=== PATIENT | male | born 1970 | race Caucasian/White ===

== ENCOUNTER 2016-07-17 06:51 | Day surgery (SDC) | payer MEDICAID ==
[2016-07-17] MEDS ORDERED: Sodium Chloride 0.9% 1,000 ML IV SCH (07:00)
[2016-07-17] MEDS ORDERED: Propofol 200 MG/20 ML SDV ONE (07:35)
[2016-07-17] MEDS ORDERED: Midazolam 1 MG/ML 2 ML SDV ONE (07:35)
[2016-07-17] MEDS ORDERED: fentaNYL 100 MCG/2 ML SDV ONE (07:35)
[2016-07-17 08:45] VITALS: BP 135/89
--- NOTE | 2016-07-21 09:11 | OR ---
DATE OF PROCEDURE: 07/17/2016 PROCEDURE: Esophagogastroduodenoscopy. FINDINGS: 1. Duodenitis, mild, no active bleeding, no evidence of ulceration. 2. Gastritis, mild, no evidence of active ulceration. 3. Inflammation at the GE junction consistent with reflux disease. COMPLICATIONS: None. 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 PREOPERATIVE DIAGNOSIS: Gastritis/duodenitis. POSTOPERATIVE DIAGNOSIS: Gastritis/duodenitis. INDICATIONS: This is a pleasant 46-year-old male with abdominal pain. It is epigastric in nature. RISKS: Risks, benefits, alternatives, and limitations, including, but not limited to infection, bleeding, and perforation were explained to the patient. They wished to proceed. PROCEDURE IN DETAIL: The patient was placed in left lateral decubitus position. The EGD scope was introduced and advanced atraumatically to the second part of the duodenum. Within the duodenum proper, the patient was known to have inflammation consistent with duodenitis. This was biopsied using cold biopsy forceps. In the bulb, there was no evidence of ulceration. The scope was brought back to the stomach and retroflexed. No hiatal hernia. In the antrum, there was mild petechiae consistent with gastritis. However, this was not associated with an ulcer nor was actively bleeding. The cardia, body, and the remainder of the stomach was inspected without abnormality. In the GE junction, the patient had inflammation around the Z-line consistent with gastroesophageal reflux disease. Therefore, the patient was biopsy in at least 4 quadrants using cold biopsy forceps. The air was removed from the stomach. The remainder of the esophagus was inspected without abnormality. The patient tolerated the procedure well. Stevan Ibarra MD /[id number]
== END 2016-07-17 08:53 | disposition home or self-care (01) ==
LOC: JP.SDS 06:51
PROVIDERS: ATTEND Surgery
PROC: 0DB48ZX Excision of Esophagogastric Junction, Via Natural or Artificial Opening Endoscopic, Diagnostic (ICD-10-PCS; principal; 2016-07-17)
PROC: 0DB88ZX Excision of Small Intestine, Via Natural or Artificial Opening Endoscopic, Diagnostic (ICD-10-PCS; 2016-07-17)
PROC: 0DB68ZX Excision of Stomach, Via Natural or Artificial Opening Endoscopic, Diagnostic (ICD-10-PCS; 2016-07-17)
DX: K29.90 Gastroduodenitis, unspecified, without bleeding (principal); K21.9 Gastro-esophageal reflux disease without esophagitis
CPT/HCPCS: 43239; J2250; J2704; J3010; J7040; 88305

== ENCOUNTER 2017-05-29 00:20 | Emergency (ER) | payer MEDICAID ==
[2017-05-29 00:33] VITALS: BP 138/75
--- NOTE | 2017-05-29 01:18 | EDM.PDOC ---
ED HPI GENERAL MEDICAL PROBLEM - General Chief Complaint: Abdominal Pain Stated Complaint: STOMACH PAIN Time Seen by Provider: 05/29/17 00:50 Source of Information: Reports: Patient, Old Records, RN Notes Reviewed History Limitations: Reports: No Limitations - History of Present Illness INITIAL COMMENTS - FREE TEXT/NARRATIVE: Brought in and accompanied by his Chief complaint Upper abdominal pain History of present illness 47-year-old male who's had recurrent abdominal pain for about 6 years. It's gotten more frequent in the last 2 years particularly in the last couple months , he had an episode of pain 6 days ago then 2 days ago and then this evening. This evening's episode started within a half hour after eating a burger meal from a fast food place. Onset about 6:30 PM However in the past his other episodes aren't always related to food. A Number of years ago he did have an ultrasound which showed the presence of gallstones, he was told that he might need to have surgery eventually. This pain feels different than his gallstone pain but the episodes that he's had recently have been similar. Upper abdomen radiation upwards, but no radiation to the back. Very sharp, feels better if he hunches over or bends over. Associated with some nausea but never any vomiting or fever. Often will go away within a few hours. Abad took ibuprofen but really wasn't improving However since he is arrived seems to have improved a bit. No urinary symptoms. No history of jaundice. Strong family history of gallstones mother and father 1 parent did have surgery. He's only past surgical history has been for appendix. 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 Abdominal Pain Score (Numeric/FACES): 5 - Related Data Allergies Allergy/AdvReac Type Severity Reaction Status Date / Time No Known Allergies Allergy Verified 07/17/16 07:06 Home Meds: Home Meds Hydrocodone/Acetaminophen [Hydrocodon-Acetaminophen 5-325] 1 - 2 each PO QID PRN #10 tablet 05/29/17 [Rx] Past Medical History HEENT History: Reports: Impaired Vision Gastrointestinal History: Reports: Other (See Below) Other Gastrointestinal History: history of probable ulcer; has umbilical hernia Musculoskeletal History: Reports: Other (See Below) Other Musculoskeletal History: history fractured ribs years ago Neurological History: Reports: Concussion Dermatologic History: Reports: None - Infectious Disease History Infectious Disease History: Reports: Chicken Pox - Past Surgical History GI Surgical History: Reports: Appendectomy, EGD Neurological Surgical History: Reports: None Musculoskeletal Surgical History: Reports: None, Arthroscopic Knee, Other (See Below) Dermatological Surgical History: Reports: Skin Biopsy Social & Family History - Family History Family Medical History: Noncontributory - Tobacco Use Smoking Status *Q: Former Smoker Used Tobacco, but Quit: Yes Month Tobacco Last Used: 20 years ago Second Hand Smoke Exposure: Yes - Caffeine Use Caffeine Use: Reports: None - Alcohol Use Days Per Week of Alcohol Use: 1 Number of Drinks Per Day: 6 Total Drinks Per Week: 6 - Recreational Drug Use Recreational Drug Use: No ED ROS GENERAL - Review of Systems Review Of Systems: Unable To Obtain Constitutional: Reports: Diaphoresis (And crying with the pain episode at home) , Decreased Appetite. Denies: Fever, Chills HEENT: Reports: No Symptoms Respiratory: Reports: No Symptoms Cardiovascular: Reports: No Symptoms Endocrine: Reports: No Symptoms GI/Abdominal: Reports: Abdominal Pain, Nausea. Denies: Bloody Stool, Diarrhea, Vomiting : Reports: No Symptoms Musculoskeletal: Reports: No Symptoms Skin: Reports: No Symptoms Neurological: Reports: No Symptoms Psychiatric: Reports: No Symptoms Hematologic/Lymphatic: Reports: No Symptoms ED EXAM, GI/ABD - Physical Exam Exam: See Below Exam Limited By: No Limitations General Appearance: Alert, Mild Distress, Other (Initially hunched over in the room fairly uncomfortable but at the time I examine his pain was less, vital signs are normal, no difficulty speaking) Eyes: Bilateral: Normal Appearance, EOMI Ears: Normal External Exam Nose: Normal Inspection Throat/Mouth: Normal Inspection, Normal Oropharynx Head: Atraumatic Neck: Normal Inspection Respiratory/Chest: No Respiratory Distress, Lungs Clear, No Accessory Muscle Use Cardiovascular: Normal Peripheral Pulses, Regular Rate, Rhythm GI/Abdominal Exam: Normal Bowel Sounds, Soft, No Distention, Tender (Epigastric and right upper quadrant). No: Rigid, Rebound, Mass (Male) Exam: No Hernia Back Exam: Normal Inspection Extremities: Normal Inspection Neurological: Alert, Oriented, No Motor/Sensory Deficits Psychiatric: Anxious Skin Exam: Warm, Dry, Intact, Normal Color, No Rash Lymphatic: No Adenopathy Course - Vital Signs Last Recorded V/S: Last Vital Signs Temp 35.6 C 05/29/17 00:32 Pulse 76 05/29/17 00:32 Resp 18 05/29/17 00:32 BP 138/75 05/29/17 00:32 Pulse Ox 99 05/29/17 00:32 - Orders/Labs/Meds Labs: Laboratory Tests 05/29/17 05/29/17 05/29/17 Range/Units 01:12 01:20 01:20 WBC 9.7 (4.5-11.0) K/uL RBC 4.71 (4.30-5.90) M/uL Hgb 13.8 (12.0-15.0) g/dL Hct 40.3 (40.0-54.0) % MCV 86 (80-98) fL MCH 29 (27-31) pg MCHC 34 (32-36) % Plt Count 248 (150-400) K/uL Sodium 136 L (140-148) mmol/L Potassium 3.5 L (3.6-5.2) mmol/L Chloride 102 (100-108) mmol/L Carbon Dioxide 24 (21-32) mmol/L Anion Gap 13.5 (5.0-14.0) mmol/L BUN 17 (7-18) mg/dL Creatinine 1.0 (0.8-1.3) mg/dL Est Cr Clr Drug Dosing 87.19 mL/min Estimated GFR (MDRD) > 60 (>60) Glucose 123 H (74-106) mg/dL Calcium 8.9 (8.5-10.1) mg/dL Total Bilirubin 0.5 (0.2-1.0) mg/dL AST 14 L (15-37) U/L ALT 23 (12-78) U/L Alkaline Phosphatase 44 L (46-116) U/L Total Protein 6.6 (6.4-8.2) g/dL Albumin 4.1 (3.4-5.0) g/dL Globulin 2.5 (2.3-3.5) g/dL Albumin/Globulin Ratio 1.6 (1.2-2.2) Lipase 133 (73-393) U/L Urine Color Yellow Urine Appearance Cloudy Urine pH 8.0 (4.5-8.0) Ur Specific [place] 1.020 (1.008-1.030) Urine Protein Negative (NEGATIVE) mg/dL Urine Glucose (UA) Normal (NEGATIVE) mg/dL Urine Ketones 50 H (NEGATIVE) mg/dL Urine Occult Blood Negative (NEGATIVE) Urine Nitrite Negative (NEGAITVE) Urine Bilirubin Negative (NEGATIVE) Urine Urobilinogen Normal (NORMAL) mg/dL Ur Leukocyte Esterase Negative (NEGATIVE) Urine RBC 0-5 (0-5) Urine WBC 0-5 (0-5) Ur Epithelial Cells Rare Amorphous Sediment Many Urine Bacteria Many Urine Mucus Not seen - Re-Assessments/Exams Free Text/Narrative Re-Assessment/Exam: 05/29/17 01:19 47-year-old male with recurrent upper abdominal pain, sometimes associated with meals. Tender in the epigastric area on exam Previous positive ultrasound by history This suggests recurrence of biliary colic. Declines analgesics currently Labs 05/29/17 01:56 Pain much improved CBC normal Hepatic profile and lipase normal BUN/creatinine normal mild elevation of glucose Recommend ultrasound as outpatient OTC analgesics or prescription pain medication as needed for pain if it recurs Return to emergency if worsening Departure - Departure Time of Disposition: 01:57 Disposition: Home, Self-Care 01 Condition: Good Clinical Impression: Epigastric abdominal pain - Discharge Information Prescriptions: Hydrocodone/Acetaminophen [Hydrocodon-Acetaminophen 5-325] 1 - 2 each PO QID PRN #10 tablet PRN Reason: Moderate to severe pain Instructions: Abdominal Pain, Adult, [id number], Cholelithiasis Referrals: PCP,None [Primary Care Provider] - Forms: ED Department Discharge Additional Instructions: Because of the recurrent nature of the pain, the normal blood tests, and a positive ultrasound several years ago, the most likely cause of your pain is biliary colic caused by gallstones getting stuck temporarily in the gallbladder tube. Avoid larger greasy meals Ultrasound will be arranged for you and you'll get a call for an appointment Make an appointment with your physician/provider or with general surgery after the ultrasound is done to discuss further treatment. Return to emergency if you have severe pain that she cannot manage at home, repeated vomiting, or special if you develop fever or turn yellow/become jaundiced
== END 2017-05-29 02:07 | disposition home or self-care (01) ==
LOC: JP.ED 00:20
DX: R10.13 Epigastric pain (principal); Z87.891 Personal history of nicotine dependence
CPT/HCPCS: 36415; 80053; 81001; 83690; 85027; 99284

== ENCOUNTER 2017-06-06 10:23 | Emergency (ER) | payer MEDICAID ==
[2017-06-06] MEDS ORDERED: Morphine 10 MG/ML Syringe IVPUSH ONE ×2 (11:15→12:22)
[2017-06-06] MEDS ORDERED: Lactated Ringers 1,000 ML IV ONE (11:16)
--- NOTE | 2017-06-06 11:21 | EDM.PDOC ---
ED HPI GENERAL MEDICAL PROBLEM - General Chief Complaint: Abdominal Pain Stated Complaint: STOMACH ISSUES Time Seen by Provider: 06/06/17 10:58 Source of Information: Reports: Patient, Family, Old Records, RN Notes Reviewed History Limitations: Reports: No Limitations - History of Present Illness INITIAL COMMENTS - FREE TEXT/NARRATIVE: 47-year-old gentleman presents emergency department today complaint of right upper quadrant pain, he was in the emergency department on the of this last month for evaluation of right upper quadrant pain underwent ultrasound which shows a gallbladder contracted poorly visualized no stones or appreciated and mild prominence of the common bile duct, he was evaluated by surgery in clinic to set up for a HIDA scan which was done today which demonstrates no acute cholecystitis however delayed gallbladder uptake with low ejection fraction approximate 60 minutes in 20% respectively. After his HIDA scan at approximately 9 AM this morning at 1 bite of a sandwich which then caused excruciating pain in his right upper quadrant, denies any shortness of breath chest pain he is experiencing nausea with the waves of pain Right Upper Abdominal Pain Score (Numeric/FACES): 9 - Related Data Allergies Allergy/AdvReac Type Severity Reaction Status Date / Time No Known Allergies Allergy Verified 06/06/17 10:47 Home Meds: Home Meds Hydrocodone/Acetaminophen [Hydrocodon-Acetaminophen 5-325] 1 - 2 each PO QID PRN #10 tablet 05/29/17 [Rx] Omeprazole 20 mg PO DAILY 06/06/17 [History] Past Medical History HEENT History: Reports: Impaired Vision Gastrointestinal History: Reports: Other (See Below) Other Gastrointestinal History: history of probable ulcer; has umbilical hernia recent abdomenal pain Musculoskeletal History: Reports: Other (See Below) Other Musculoskeletal History: history fractured ribs years ago Neurological History: Reports: Concussion Dermatologic History: Reports: None - Infectious Disease History Infectious Disease History: Reports: Chicken Pox - Past Surgical History GI Surgical History: Reports: Appendectomy, EGD Neurological Surgical History: Reports: None Musculoskeletal Surgical History: Reports: None, Arthroscopic Knee, Other (See Below) Dermatological Surgical History: Reports: Skin Biopsy Social & Family History - Family History Family Medical History: Noncontributory - Tobacco Use Smoking Status *Q: Former Smoker Used Tobacco, but Quit: Yes Month Tobacco Last Used: 20 years ago Second Hand Smoke Exposure: Yes - Caffeine Use Caffeine Use: Reports: None - Alcohol Use Days Per Week of Alcohol Use: 1 Number of Drinks Per Day: 6 Total Drinks Per Week: 6 - Recreational Drug Use Recreational Drug Use: No ED ROS GENERAL - Review of Systems Review Of Systems: See Below Constitutional: Reports: No Symptoms HEENT: Reports: No Symptoms Respiratory: Reports: No Symptoms Cardiovascular: Reports: No Symptoms GI/Abdominal: Reports: Abdominal Pain, Flatus, Nausea. Denies: Vomiting : Reports: No Symptoms Musculoskeletal: Reports: No Symptoms Skin: Reports: No Symptoms Neurological: Reports: No Symptoms ED EXAM, GI/ABD - Physical Exam Exam: See Below Exam Limited By: No Limitations General Appearance: Alert, Moderate Distress Respiratory/Chest: No Respiratory Distress, Lungs Clear Cardiovascular: Regular Rate, Rhythm, No Murmur GI/Abdominal Exam: Soft, Tender Course - Vital Signs Last Recorded V/S: Last Vital Signs Temp 98.8 F 06/06/17 10:54 Pulse 69 06/06/17 10:54 Resp 20 06/06/17 10:54 BP 136/88 06/06/17 10:54 Pulse Ox 100 06/06/17 10:54 - Orders/Labs/Meds Orders: Active Orders 24 hr Category Date Time Status COMPREHENSIVE METABOLIC PN,CMP [CHEM] Stat Lab 06/06/17 11:24 Received Lactated Ringers [Ringers, Lactated] 1,000 ml Med 06/06/17 11:16 Active IV BOLUS Medication Orders Lactated Ringer's (Ringers, Lactated) 1,000 mls @ 250 mls/hr IV BOLUS ONE Stop: 06/06/17 15:15 Last Admin: 06/06/17 11:30 Dose: 250 mls/hr Labs: Laboratory Tests 06/06/17 Range/Units 11:24 WBC 7.2 (4.5-11.0) K/uL RBC 4.87 (4.30-5.90) M/uL Hgb 14.3 (12.0-15.0) g/dL Hct 41.7 (40.0-54.0) % MCV 86 (80-98) fL MCH 29 (27-31) pg MCHC 34 (32-36) % Plt Count 255 (150-400) K/uL Neut % (Auto) 60 (36-66) % Lymph % (Auto) 29 (24-44) % [place] % (Auto) 9 H (2-6) % Eos % (Auto) 1 L (2-4) % Baso % (Auto) 0 (0-1) % Meds: Medications Generic Name Dose Route Start Last Admin Trade Name Freq PRN Reason Stop Dose Admin Lactated Ringer's 1,000 mls @ 250 mls/hr 06/06/17 11:16 06/06/17 11:30 Ringers, Lactated IV 06/06/17 15:15 250 mls/hr BOLUS ONE Administration Discontinued Medications Generic Name Dose Route Start Last Admin Trade Name Freq PRN Reason Stop Dose Admin Morphine Sulfate 5 mg 06/06/17 11:15 06/06/17 11:32 Morphine IVPUSH 06/06/17 11:16 5 mg ONETIME ONE Administration Departure - Departure Time of Disposition: 11:43 Disposition: Admitted As Inpatient 66 Condition: Good Clinical Impression: Dysfunctional gallbladder - Discharge Information Referrals: Stevan Ibarra MD [Primary Care Provider] - Forms: ED Department Discharge - My Orders Last 24 Hours: My Active Orders 06/06/17 11:16 Lactated Ringers [Ringers, Lactated] 1,000 ml IV BOLUS 06/06/17 11:24 COMPREHENSIVE METABOLIC PN,CMP [CHEM] Stat - Assessment/Plan Last 24 Hours: My Active Orders 06/06/17 11:16 Lactated Ringers [Ringers, Lactated] 1,000 ml IV BOLUS 06/06/17 11:24 COMPREHENSIVE METABOLIC PN,CMP [CHEM] Stat Plan: Assessment Acuity = acute Site and laterality = right upper quadrant pain postprandial Etiology = probable gallbladder dysfunction Manifestations = nausea Location of injury = Home Lab values = CBC, CMP pending Plan Discussed case with Dr. Pugh kindly agreed to evaluate the patient emergency department for surgical intervention This note was dictated using [employer] voice recognition software please call with any questions on syntax or yaquelin.
[2017-06-06] MEDS ORDERED: Morphine 2 MG/ML Syringe IVPUSH PRN (11:44)
[2017-06-06] MEDS ORDERED: Propofol 200 MG/20 ML SDV ONE (11:59)
[2017-06-06] MEDS ORDERED: Rocuronium 50 MG/5 ML Vial ONE (11:59)
[2017-06-06] MEDS ORDERED: Succinylcholine/Normal Saline 200 MG/10 ML Syringe ONE (11:59)
[2017-06-06] MEDS ORDERED: Ondansetron 4 MG/2 ML SDV ONE (11:59)
[2017-06-06] MEDS ORDERED: Neostigmine Methylsulfate 1 MG/ML 5 ML Syringe ONE (11:59)
[2017-06-06] MEDS ORDERED: Dexamethasone 4 MG/ML SDV ONE (11:59)
[2017-06-06] MEDS ORDERED: fentaNYL 250 MCG/5 ML SDV ONE (11:59)
[2017-06-06] MEDS ORDERED: Lidocaine 1% with EPINEPHrine 1:100,000 50 ML MDV ONE (12:07)
[2017-06-06] MEDS ORDERED: Bupivacaine 0.5% 50 ML MDV ONE (12:07)
[2017-06-06 12:17] VITALS: BP 128/86
[2017-06-06] MEDS ORDERED: Piperacillin/Tazobactam 4.5 GM in Sodium Chloride 0.9% 100 ML IV SCH (12:30)
--- NOTE | 2017-06-06 12:31 | PCM.CONS ---
H&P History of Present Illness - General Date of Service: 06/06/17 Admit Problem/Dx: Admission Diagnosis/Problem Admission Diagnosis/Problem Dysfunctional gallbladder Source of Information: Patient, Provider, Significant Other History Limitations: Reports: No Limitations - History of Present Illness Initial Comments - Free Text/Narative: This 47 year old white male has complained of intermittent episodes of right upper quadrant and epigastric pain for over a year. He was told it was reflux. He presented tot the ER about a week ago with pain and was found to have normal LFT's and lipase. An abdominal ultrasound was unremarkable (shrunken gall bladder) but his common duct was slightly dilated. He saw Dr. Menendez in clinic who ordered CCK stimulated HIDA which was done today. This showed delayed gall bladder visualization and with injection of CCK he had a low ejection fraction consistent with biliary dyskinesia. However, there was no contrast into the small bowel. He went home, ate one bite of a sandwich and experienced severe abdominal pain causing him to return to the ER. He is quite uncomfortable and appeared jaundiced. His LFT's are now abnormal with a bilirubin of 4.7 and and alkaline phosphatase of 200. He will be referred to [facility] for ERCP. I explaind this to him. Onset of Symptoms: Reports: Today (He has had problems however for over a year. ) Symptom Onset Time: 09:00 Duration of Symptoms: Reports: Hour(s): Location: Reports: Abdomen Severity: Severe Improves with: Reports: None Worsens with: Reports: None Associated Symptoms: Reports: No Other Symptoms Right Upper Abdominal Pain Score (Numeric/FACES): 2 - Related Data Allergies/Adverse Reactions: Allergies Allergy/AdvReac Type Severity Reaction Status Date / Time No Known Allergies Allergy Verified 06/06/17 10:47 Home Medications: Home Meds Hydrocodone/Acetaminophen [Hydrocodon-Acetaminophen 5-325] 1 - 2 each PO QID PRN #10 tablet 05/29/17 [Rx] Omeprazole 20 mg PO DAILY 06/06/17 [History] Past Medical History HEENT History: Reports: Impaired Vision Gastrointestinal History: Reports: Other (See Below) Other Gastrointestinal History: history of probable ulcer; has umbilical hernia recent abdomenal pain Musculoskeletal History: Reports: Other (See Below) Other Musculoskeletal History: history fractured ribs years ago Neurological History: Reports: Concussion Dermatologic History: Reports: None - Infectious Disease History Infectious Disease History: Reports: Chicken Pox - Past Surgical History GI Surgical History: Reports: Appendectomy, EGD Neurological Surgical History: Reports: None Musculoskeletal Surgical History: Reports: None, Arthroscopic Knee, Other (See Below) Dermatological Surgical History: Reports: Skin Biopsy Social & Family History - Family History Family Medical History: Noncontributory - Tobacco Use Smoking Status *Q: Former Smoker Used Tobacco, but Quit: Yes Month Tobacco Last Used: 20 years ago Second Hand Smoke Exposure: Yes - Caffeine Use Caffeine Use: Reports: None - Alcohol Use Days Per Week of Alcohol Use: 1 Number of Drinks Per Day: 6 Total Drinks Per Week: 6 - Recreational Drug Use Recreational Drug Use: No H&P Review of Systems - Review of Systems: Review Of Systems: See Below General: Reports: No Symptoms HEENT: Reports: No Symptoms Pulmonary: Reports: No Symptoms Cardiovascular: Reports: No Symptoms Gastrointestinal: Reports: Abdominal Pain, Other (History of appendectomy at age 12. ) Genitourinary: Reports: No Symptoms Musculoskeletal: Reports: No Symptoms Skin: Reports: No Symptoms Psychiatric: Reports: No Symptoms Neurological: Reports: No Symptoms Hematologic/Lymphatic: Reports: No Symptoms Immunologic: Reports: No Symptoms Exam - Exam Exam: See Below - Vital Signs Vital Signs: Last Vital Signs Temp 98.8 F 06/06/17 12:16 Pulse 65 06/06/17 12:16 Resp 16 06/06/17 12:16 BP 128/86 06/06/17 12:16 Pulse Ox 98 06/06/17 12:16 Weight: 123 lb 7.342 oz - Exam Lungs: Clear to Auscultation, Normal Respiratory Effort Cardiovascular: Regular Rate, Regular Rhythm GI/Abdominal Exam: Rigid, Tender Extremities: Normal Inspection Neuro Extensive - Mental Status: Alert, Oriented x3, Normal Mood/Affect (Very uncomfortable. ), Normal Cognition Psychiatric: Alert, Normal Affect, Normal Mood (Very uncomfortable. ) - Patient Data Lab Results Last 24 hrs: Laboratory Results - last 24 hr 06/06/17 06/06/17 Range/Units 11:24 11:24 WBC 7.2 (4.5-11.0) K/uL RBC 4.87 (4.30-5.90) M/uL Hgb 14.3 (12.0-15.0) g/dL Hct 41.7 (40.0-54.0) % MCV 86 (80-98) fL MCH 29 (27-31) pg MCHC 34 (32-36) % Plt Count 255 (150-400) K/uL Neut % (Auto) 60 (36-66) % Lymph % (Auto) 29 (24-44) % [place] % (Auto) 9 H (2-6) % Eos % (Auto) 1 L (2-4) % Baso % (Auto) 0 (0-1) % Sodium 142 (140-148) mmol/L Potassium 3.5 L (3.6-5.2) mmol/L Chloride 104 (100-108) mmol/L Carbon Dioxide 26 (21-32) mmol/L Anion Gap 15.5 H (5.0-14.0) mmol/L BUN 17 (7-18) mg/dL Creatinine 1.2 (0.8-1.3) mg/dL Est Cr Clr Drug Dosing 60.28 mL/min Estimated GFR (MDRD) > 60 (>60) Glucose 140 H (74-106) mg/dL Calcium 9.6 (8.5-10.1) mg/dL Total Bilirubin 4.7 H D (0.2-1.0) mg/dL AST 125 H D (15-37) U/L ALT 432 H (12-78) U/L Alkaline Phosphatase 200 H D (46-116) U/L Total Protein 7.5 (6.4-8.2) g/dL Albumin 4.1 (3.4-5.0) g/dL Globulin 3.4 (2.3-3.5) g/dL Albumin/Globulin Ratio 1.2 (1.2-2.2) Result Diagrams: 06/06/17 11:24 06/06/17 11:24 Consult PN Assessment/Plan Procedures: Procedures ASSAY OF LIPASE (05/29/17) COMPLETE CBC AUTOMATED (05/29/17) COMPREHEN METABOLIC PANEL (05/29/17) ECHO EXAM OF ABDOMEN (05/31/17) EGD BIOPSY SINGLE/MULTIPLE (07/17/16) EMERGENCY DEPT VISIT (05/29/17) ROUTINE VENIPUNCTURE (05/29/17) URINALYSIS AUTO W/SCOPE (05/29/17) (1) Serum total bilirubin elevated SNOMED Code(s): 32074439 Code(s): R17 - UNSPECIFIED JAUNDICE Current Visit: Yes Problem List Initiated/Reviewed/Updated: Yes Plan: Refer to [facility] for ERCP.
[2017-06-06] MEDS ORDERED: Piperacillin/Tazobactam/Dext 4.5 GM in Premix Bag 1 BAG IV SCH (12:45)
== END 2017-06-06 13:25 | disposition other institution (70) ==
LOC: JP.ED 10:23 → JP.SDS 12:00 → JP.ED 13:25
DX: K82.8 Other specified diseases of gallbladder (principal); Z79.899 Other long term (current) drug therapy; Z87.891 Personal history of nicotine dependence
CPT/HCPCS: 36415; 80053; 85025; 87040; 99285; J1100; J2270; J2405; J2543; J2704; J3010; J7120

== ENCOUNTER 2017-10-12 18:48 | Emergency (ER) | payer MEDICAID ==
[2017-10-12] MEDS ORDERED: HYDROmorphone 0.5 MG/0.5 ML Syringe IVPUSH ONE ×2 (19:08→19:55)
[2017-10-12] MEDS ORDERED: Ondansetron 4 MG/2 ML SDV IVPUSH ONE ×2 (19:09→21:38)
--- NOTE | 2017-10-12 19:11 | EDM.PDOC ---
ED HPI GENERAL MEDICAL PROBLEM - General Chief Complaint: Upper Extremity Injury/Pain Stated Complaint: FOUR HAYDEN ACCIDENT Time Seen by Provider: 10/12/17 19:09 Source of Information: Reports: Patient History Limitations: Reports: No Limitations - History of Present Illness INITIAL COMMENTS - FREE TEXT/NARRATIVE: pt arrived with pain in the left shoulder. He hit a tree with his 4 hayden and he thinks he dislocated the shoulder. Onset: Today, Sudden Duration: Hour(s): Location: Reports: Upper Extremity, Left Associated Symptoms: Reports: No Other Symptoms Left Shoulder Pain Score (Numeric/FACES): 10 - Related Data Allergies Allergy/AdvReac Type Severity Reaction Status Date / Time No Known Allergies Allergy Verified 10/12/17 19:03 Home Meds: Home Meds NK [No Known Home Meds] 10/12/17 [History] Past Medical History HEENT History: Reports: Impaired Vision Gastrointestinal History: Reports: Other (See Below) Other Gastrointestinal History: history of probable ulcer; has umbilical hernia recent abdomenal pain Musculoskeletal History: Reports: Other (See Below) Other Musculoskeletal History: history fractured ribs years ago Neurological History: Reports: Concussion Dermatologic History: Reports: None - Infectious Disease History Infectious Disease History: Reports: Chicken Pox - Past Surgical History GI Surgical History: Reports: Appendectomy, EGD Neurological Surgical History: Reports: None Musculoskeletal Surgical History: Reports: None, Arthroscopic Knee, Other (See Below) Dermatological Surgical History: Reports: Skin Biopsy Social & Family History - Family History Family Medical History: Noncontributory - Caffeine Use Caffeine Use: Reports: None Review of Systems - Review of Systems Review Of Systems: See Below Constitutional: Reports: No Symptoms Eyes: Reports: No Symptoms Ears: Reports: No Symptoms Nose: Reports: No Symptoms Mouth/Throat: Reports: No Symptoms Respiratory: Reports: No Symptoms Cardiovascular: Reports: No Symptoms GI/Abdominal: Reports: No Symptoms Musculoskeletal: Reports: Other (pain in the left shoulder. ) Skin: Reports: No Symptoms ED EXAM, GENERAL - Physical Exam Exam: See Below Free Text/Narrative:: pt arrived with pain in the left shoulder which he thought he dislocated. He is not sob. He is haviing alot of pain with movement of his left arm and deep breathing. Exam Limited By: No Limitations General Appearance: Alert, Anxious, Moderate Distress Ears: Normal TMs Nose: Normal Inspection Throat/Mouth: Normal Inspection Head: Atraumatic Neck: Normal Inspection Respiratory/Chest: No Respiratory Distress, Other ( good bereath sounds bilaterlly. ) Cardiovascular: Regular Rate, Rhythm, Other (no murmurs seen. ) GI/Abdominal: Soft, Non-Tender (Male) Exam: Deferred Rectal (Males) Exam: Deferred Back Exam: Normal Inspection Extremities: Other ( left shoulder is deformed. Is is very uncomfortable when it is moved. ) Neurological: Alert, Oriented, Normal Cognition Psychiatric: Normal Affect Course - Vital Signs Last Recorded V/S: Last Vital Signs Temp 36.4 C 10/12/17 21:11 Pulse 63 10/12/17 21:11 Resp 16 10/12/17 21:11 BP 167/95 H 10/12/17 21:11 Pulse Ox 99 10/12/17 21:11 - Orders/Labs/Meds Orders: Active Orders 24 hr Category Date Time Status Chest w Cont [CT] Stat Exams 10/12/17 19:53 Taken Knee Min 4V Rt [CR] Stat Exams 10/12/17 19:31 Taken Shoulder Comp Lt [CR] Stat Exams 10/12/17 19:07 Taken Iopamidol [Isovue-300 (61%)] Med 10/12/17 20:00 Active 100 ml IV . DIRECTED Sodium Chloride 0.9% [Normal Saline] 80 ml Med 10/12/17 20:00 Active IV ASDIRECTED Sodium Chloride 0.9% [Saline Flush] Med 10/12/17 19:59 Active 10 ml FLUSH ASDIRECTED PRN Medication Orders Sodium Chloride (Normal Saline) 80 mls @ 3 mls/sec IV ASDIRECTED YADIEL Last Admin: 10/12/17 20:16 Dose: 3 mls/sec Iopamidol (Isovue-300 (61%)) 100 ml IV . DIRECTED YADIEL Last Admin: 10/12/17 20:16 Dose: 100 ml Sodium Chloride (Saline Flush) 10 ml FLUSH ASDIRECTED PRN PRN Reason: Keep Vein Open Last Admin: 10/12/17 20:16 Dose: 10 ml Admin: 10/12/17 20:03 Dose: 10 ml Labs: Laboratory Tests 10/12/17 10/12/17 Range/Units 19:57 19:57 WBC 20.0 H (4.5-11.0) K/uL RBC 4.58 (4.30-5.90) M/uL Hgb 13.5 (12.0-15.0) g/dL Hct 39.6 L (40.0-54.0) % MCV 87 (80-98) fL MCH 30 (27-31) pg MCHC 34 (32-36) % Plt Count 235 (150-400) K/uL Neut % (Auto) 84 H (36-66) % Lymph % (Auto) 9 L (24-44) % Sibley % (Auto) 7 H (2-6) % Eos % (Auto) 0 L (2-4) % Baso % (Auto) 0 (0-1) % Sodium 136 L (140-148) mmol/L Potassium 3.4 L (3.6-5.2) mmol/L Chloride 102 (100-108) mmol/L Carbon Dioxide 20 L (21-32) mmol/L Anion Gap 17.4 H (5.0-14.0) mmol/L BUN 11 (7-18) mg/dL Creatinine 0.7 L (0.8-1.3) mg/dL Est Cr Clr Drug Dosing 121.36 mL/min Estimated GFR (MDRD) > 60 (>60) Glucose 114 H (74-106) mg/dL Calcium 8.3 L (8.5-10.1) mg/dL Meds: Medications Generic Name Dose Route Start Last Admin Trade Name Freq PRN Reason Stop Dose Admin Sodium Chloride 80 mls @ 3 mls/sec 10/12/17 20:00 10/12/17 20:16 Normal Saline IV 3 mls/sec ASDIRECTED YADIEL Administration Iopamidol 100 ml 10/12/17 20:00 10/12/17 20:16 Isovue-300 (61%) IV 100 ml . DIRECTED YADIEL Administration Sodium Chloride 10 ml 10/12/17 19:59 10/12/17 20:16 Saline Flush FLUSH 10 ml ASDIRECTED PRN Administration Keep Vein Open Discontinued Medications Generic Name Dose Route Start Last Admin Trade Name Freq PRN Reason Stop Dose Admin Hydromorphone HCl 0.5 mg 10/12/17 19:08 10/12/17 19:18 Dilaudid IVPUSH 10/12/17 19:09 0.5 mg ONETIME ONE Administration Hydromorphone HCl 0.5 mg 10/12/17 19:55 10/12/17 20:01 Dilaudid IVPUSH 10/12/17 19:56 0.5 mg ONETIME ONE Administration Ondansetron HCl 4 mg 10/12/17 19:09 10/12/17 19:16 Zofran IVPUSH 10/12/17 19:10 4 mg ONETIME ONE Administration - Re-Assessments/Exams Free Text/Narrative Re-Assessment/Exam: 10/12/17 21:31 xray of the shoulder showed a communited fracture of the left scapula. A cat scan of the chest showed a fracture of the scapula with displacement. He has a fracture of the manibrium with some blood in the mediastium. He has a fracture of the left 2nd and 3rd ribs. He has a fractured transverse process of the 3rd thoracic vertebrae. Departure - Departure Time of Disposition: 21:34 Disposition: DC/Tfer to [facility] 02 Condition: Fair Clinical Impression: Fracture of left scapula, Fracture of two ribs of left side, Fracture of manubrium, Fracture of transverse process of thoracic vertebra - Discharge Information Referrals: PCP,None [Primary Care Provider] - Forms: ED Department Discharge Care Plan Goals: tranfer to [facility]. - My Orders Last 24 Hours: My Active Orders 10/12/17 19:07 Shoulder Comp Lt [CR] Stat 10/12/17 19:31 Knee Min 4V Rt [CR] Stat 10/12/17 19:53 Chest w Cont [CT] Stat 10/12/17 19:59 Sodium Chloride 0.9% [Saline Flush] 10 ml FLUSH ASDIRECTED PRN 10/12/17 20:00 Iopamidol [Isovue-300 (61%)] 100 ml IV . DIRECTED Sodium Chloride 0.9% [Normal Saline] 80 ml IV ASDIRECTED - Assessment/Plan Last 24 Hours: My Active Orders 10/12/17 19:07 Shoulder Comp Lt [CR] Stat 10/12/17 19:31 Knee Min 4V Rt [CR] Stat 10/12/17 19:53 Chest w Cont [CT] Stat 10/12/17 19:59 Sodium Chloride 0.9% [Saline Flush] 10 ml FLUSH ASDIRECTED PRN 10/12/17 20:00 Iopamidol [Isovue-300 (61%)] 100 ml IV . DIRECTED Sodium Chloride 0.9% [Normal Saline] 80 ml IV ASDIRECTED
[2017-10-12] MEDS ORDERED: Iopamidol 612 MG/ML 100 ML Bottle IV SCH (20:00)
[2017-10-12] MEDS ORDERED: Sodium Chloride 0.9% 80 ML IV SCH (20:00)
[2017-10-12] MEDS: Sodium Chloride 0.9% 10 ML Syringe FLUSH PRN ×3 (20:03→21:48)
[2017-10-12 21:12] VITALS: BP 167/95
[2017-10-12] MEDS ORDERED: HYDROmorphone 1 MG/ML Syringe IVPUSH ONE (21:37)
[2017-10-12] MEDS ORDERED: Sodium Chloride 0.9% 1,000 ML IV SCH (21:45)
--- NOTE | 2017-10-15 08:29 | CR ---
Shoulder Comp Lt CLINICAL HISTORY: Pain, trauma FINDINGS: There is a comminuted displaced fracture of the scapula. The humeral joint appears intact. There is some mild irregularity of the inferior glenoid rim. This may represent some super imposition . Impression: Comminuted, displaced fracture of the scapula
--- NOTE | 2017-10-15 08:31 | CR ---
Knee Min 4V Rt CLINICAL HISTORY: Pain, trauma FINDINGS: No acute fracture or dislocation is noted. There are no osseous lesions. Articular surfaces are smooth Impression: Negative
== END 2017-10-12 22:35 ==
LOC: JP.ED 18:48
DX: S42.112A Displaced fracture of body of scapula, left shoulder, initial encounter for closed fracture (principal); S22.21XA Fracture of manubrium, initial encounter for closed fracture; S22.42XA Multiple fractures of ribs, left side, initial encounter for closed fracture; S22.021A Stable burst fracture of second thoracic vertebra, initial encounter for closed fracture; V89.2XXA Person injured in unspecified motor-vehicle accident, traffic, initial encounter
CPT/HCPCS: 36415; 71260; 73030; 73564; 80048; 85025; 93005; 96374; 96375; 96376; 99285; J1170; J2405; J7030; J7050; Q9967